=== PATIENT | male | born 1965 | race Caucasian/White ===

== ENCOUNTER → 2024-07-16 | Outpatient (CLI) | payer OTHER, SELFPAY ==
--- NOTE | 2024-07-16 17:23 | CT_ITS ---
PROCEDURE: SINUS/FACIAL BONE REASON FOR EXAM: CHRONIC SINUSITIS TECHNIQUE: CT of the facial bones without contrast. One or more dose reduction techniques were used (e.g., Automated exposure control, adjustment of the mA and/or kV according to patient size, use of iterative reconstruction technique). COMPARISON: None. FINDINGS: Bones: No acute fracture. Sinuses: Mucosal thickening of the paranasal sinuses, particularly the bilateral maxillary sinus. Orbits: Unremarkable Soft Tissues: Unremarkable Frontal: Mucosal thickening. CT/Sinus/Facial Bone IMPRESSION: Mucosal thickening of the paranasal sinuses, concerning for sinus disease. Reading Location: [facility]
== END | disposition home or self-care (01) ==
PROVIDERS: PCP Family Medicine; Referring Provider Otolaryngology; Visit Provider Otolaryngology
DX: J32.8 Other chronic sinusitis (principal)
CPT/HCPCS: 70486

== ENCOUNTER 2024-08-20 08:14 | Day surgery (SDC) | payer OTHER, SELFPAY ==
--- NOTE | 2024-08-14 13:36 | EKG12_ITS ---
Test Reason : PREOP Blood Pressure : */* mmHG Vent. Rate : 60 BPM Atrial Rate : 60 BPM P-R Int : 166 ms QRS Dur : 88 ms QT Int : 400 ms P-R-T Axes : 53 34 23 degrees QTcB Int : 400 ms Normal sinus rhythm Normal ECG No previous ECGs available Confirmed by JANNIE MENDOZA, LEVAR ([id number]), assignment desk editor CAMMY BERNAL ([id number]) on 08/15/2024 1:12:51 PM Referred By: Bernardino Najera Confirmed By: LEVAR VALDERRAMA MD
[2024-08-14 14:27] LABS: Hemoglobin 13.2 g/dL (13.0-16.5); Mean Corpuscular Hgb 29.5 pg (27.0-32.0); Mean Corpuscular Volume 89.3 fL (80-94); Mean Platelet Vol. 9.9 fl (6.2-12.0); Platelet Count 296 K/mm3 (150-450); RBC Distribution Width SD 42.3 fl (35.1-43.9); Red Blood Count 4.48 M/mm3 (4.6-6.2); White Blood Count 7.1 K/mm3 (4.4-11.0)
[2024-08-14 15:06] LABS: Anion Gap 12 (5-15); BUN 13 mg/dL (4-19); BUN/Creat Ratio 10.8 RATIO (10-20); Calcium,Total 8.9 mg/dL (7.6-11.0); Chloride 106 mmol/L (98-108); Creatinine, Serum 1.17 mg/dL (0.70-1.20); EST Glomerular Filtration Rate 72 (>60); Glucose 106 mg/dL (70-99); Potassium 4.2 mmol/L (3.3-5.1); Sodium Level 139 mmol/L (133-145)
--- NOTE | 2024-08-17 10:47 | PAT.ANE_ITS ---
Pre-Assessment Diagnosis/Proposed Procedure Planned Operative Procedure(s): (B) Septoplasty, Submucous Resection of Inferior Turbinates, Bilateral Myringotomy with Tubes, Bilateral Maxillary Antrostomy, Bilateral Total Ethmoidectomy, with Navigation Anesthesia History Anesthesia History - project management analyst: Anesthesia History - project management analyst Hx Hospitalization No 08/13/24 10:15 Any Problems With Anesthesia Yes: PONV 08/13/24 10:15 Cholinesterase deficiency No 08/13/24 10:15 You/Your Family Experience No 08/13/24 10:15 fever (hyperthermia) with Relationship Recent Exposure to Contagious Disease Does patient have nerve No 08/13/24 10:15 stimulator Patient instructed to have device shut off --Does patient have Pacemaker or ICD? When Was Last Pacemaker Check QUESTION #4 FULL TEXT: You/Your Family Experience fever (hyperthermia) with Anesthesia Last Oral Intake Last Oral intake: Last Oral Intake NPO since Meds taken in AM with sips of water? Meds patient instructed to take am of surgery PONV PONV - project management analyst: PONV - project management analyst Female No 08/13/24 10:15 HX of Motion Sickness No 08/13/24 10:15 HX of N/V After Surgery Yes 08/13/24 10:15 Non-Smoker Yes 08/13/24 10:15 Duration of Surgery greater Yes 08/13/24 10:15 than 60 minutes Number of Risk Factors 3 08/13/24 10:15 PONV Score Moderate Risk 08/13/24 10:15 Respiratory Assessment Respiratory Assessment - project management analyst: Respiratory Tract Infection Hx - project management analyst Hx Respiratory Tract Infection No 08/13/24 10:15 STOP Sleep Apnea STOP Sleep Apnea - project management analyst: STOP Sleep Apnea - project management analyst Hx Hypertension No 08/13/24 10:15 Hx Sleep Apnea Yes 08/13/24 10:15 CPAP Yes 08/13/24 10:15 BIPAP No 08/13/24 10:15 Do you snore loudly (louder than talking or can be heard Do you often feel tired/ fatigued/ sleepy during daytime? Has anyone observed you stop breathing during sleep? STOP Results Positive 08/13/24 10:15 QUESTION #5 FULL TEXT : Do you snore loudly (louder than talking or can be heard through closed doors)? 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 Specify any problems Hx of Preganancy in last 3 N/A 08/13/24 10:15 Months Nurse Filling Out Transfusion MGRIFFITH 08/13/24 10:15 & Questions: Date: 08/13/24 08/13/24 10:15 Time: 10:19 08/13/24 10:15 Patient unable to answer at this time (ie. confused, unrespo /Reproduction History /Reproductive History - project management analyst: /Reproductive Hx- project management analyst Hx Now Gestational Age (in weeks): EDC: Hx Hx Para Hx Section SAB ON LICENSE OF [facility] Medical History (Updated 08/13/24 @ 10:33 by Na Telles) Wears glasses Depression Back pain History of kidney stones High cholesterol Restless legs Arthritis History of hiatal hernia Difficulty swallowing Difficulty chewing PONV (postoperative nausea and vomiting) History of IBS Gastric reflux CPAP (continuous positive airway pressure) dependence Sleep apnea Shortness of breath on exertion Former smoker Leg cramps History of edema History of echocardiogram History of stress test Cardiology follow-up encounter Home Medications ?Medication ?Instructions ?Recorded ?Last Taken ?Type albuterol sulfate 90 mcg/actuation 2 puff inhalation Q 4H PRN PRN 08/13/24 Unknown History aerosol inhaler wheezing aspirin 81 mg tablet,delayed 81 mg PO DAILY 08/13/24 0 08/13/24 History release baclofen 10 mg tablet 10 mg PO QHS 08/13/24 Unknow n History citalopram 10 mg tablet 10 mg PO QHS 08/13/24 Unknow n History esomeprazole magnesium 20 mg 40 mg PO DAILY 08/13/24 U nknown History capsule,delayed release (Nexium) fluticasone propionate 50 1 spray intranasal DAILY PRN 08/13/24 Unknown History mcg/actuation nasal allergy symptoms spray,suspension gabapentin 100 mg capsule 100 mg PO BID PRN pain 08/13 Unknown History methocarbamol 750 mg tablet 750 mg PO TID PRN muscle r elaxant 08/13/24 Unknown History montelukast 10 mg tablet 10 mg PO QHS 08/13/24 Unknow n History multivitamin 1 tab PO DAILY 08/13/24 Unkn own History rosuvastatin 40 mg tablet 20 mg PO QHS 08/13/24 Unknow n History Allergy/AdvReac Type Severity Reaction Status Date / Time hydrocodone Allergy Intermediate Rash Verified 08/13/24 10:02 Penicillins (PCN) AdvReac Unknown PT UNSURE Verified 08/13/24 10:02 OF REACTION Surgical History (Updated 08/13/24 @ 10:33 by Na Telles) History of cardiac catheterization History of eye surgery History of lithotripsy History of colonoscopy History of esophagogastroduodenoscopy (EGD) History of surgery on lower extremity Social History Smoking Status: Former smoker Audit: Pertinent Findings Pertinent Findings EKG Perinent findings: 08/14/2024. Normal sinus rhythm 60 bpm. Normal EKG. Stress test pertinent findings: 01/05/2023. Negative stress test. Echo (EF%) pertinent findings: Echo per [facility]. EF 59%. Normal wall motion and function. Consult pertinent findings: Cardiology. [facility]. 08/05/2024. Pain, unspecified type. Stated noncardiac/positional symptoms. History of nonobstructive coronary artery disease. Continue aspirin and statins. Recommendation Anesthesia Recommendation Anesthesia recommendation: OPTIMIZED for anesthesia
[2024-08-20] VITALS (13 sets, daily range): BP systolic 119–157; BP diastolic 63–87; PULSE 65–84; RESP 14–22; TEMP 36.6–37.1; O2SAT 90–100; BMI 29.7
[2024-08-20] MEDS: Lactated Ringers 1,000 ML 15 ML IV (08:53)
--- NOTE | 2024-08-20 09:08 | PCM.PRE.AN2 ---
ASA Classification* ASA Classification ASA Classification: 3 (Severe PONV - please do TIVA. Also SEVERE HELLEN, AHI > 90. Please ask surgeon to place nasal trumpet under visualization at the end of the case if possible. The patient reports significant post operative hypoxia and obstruction in PACU during his previous anes. Stable cardiac hx. ) Assessment & Plan Anesthesia* Anesthesia Assessment Anesthesia Assessment: Discussed sedation and/or anesthesia options, risks, benefits, and alternatives with patient/parents/legal guardian/POA. Questions invited. The patient/parents/legal guardian/POA seems to understand and agrees to proceed with anesthesia plan. Reviewed the physical assessment, medical history, allergy history and patient home medications list prior to surgery/procedure/anesthetic and documented any changes. Performed airway and anesthesia risk assessments. Anesthesia Type Anesthesia Type: General History Source History Obtained from:: Patient and Chart Anesthesia Focused Assessment* Temperature: 98.4 F Pulse Rate: 65 Blood Pressure: 119/77 Respiratory Rate: 16 Pulse Ox: 99 Oxygen Delivery Method: Room Air Airway Assessment Mouth opens: >3 cm Mallampati Score: II Teeth Condition: Intact and Missing (front top left ) Focused Labs Anesthesia Preop lab: CBC WBC 7.1 K/mm3 (4.4-11.0) 08/14/24 13:37 08/14/24 RBC 4.48 M/mm3 (4.6-6.2) L 08/14/24 13:37 08/14/24 Hgb 13.2 g/dL (13.0-16.5) 08/14/24 13:37 08/14/24 Hct 40.0 % (40-54) 08/14/24 13:37 08/14/24 Plt Count 296 K/mm3 (150-450) 08/14/24 13:37 08/14/24 CHEMISTRY Potassium 4.2 mmol/L (3.3-5.1) 08/14/24 13:37 08/14/24 Sodium 139 mmol/L (133-145) 08/14/24 13:37 08/14/24 BUN 13 mg/dL (4-19) 08/14/24 13:37 08/14/24 Creatinine 1.17 mg/dL (0.70-1.20) 08/14/24 13:37 08/14/24 Glucose 106 mg/dL (70-99) H 08/14/24 13:37 08/14/24 COAG Pre-Assessment Diagnosis/Proposed Procedure Planned Operative Procedure(s): (B) Septoplasty, Submucous Resection of Inferior Turbinates, Bilateral Myringotomy with Tubes, Bilateral Maxillary Antrostomy, Bilateral Total Ethmoidectomy, with Navigation Anesthesia History Anesthesia History - metal coater: Anesthesia History - metal coater Hx Hospitalization No 08/13/24 10:15 Any Problems With Anesthesia Yes: PONV 08/13/24 10:15 Cholinesterase deficiency No 08/13/24 10:15 You/Your Family Experience No 08/13/24 10:15 fever (hyperthermia) with Relationship Recent Exposure to Contagious No 08/20/24 08:39 Disease Does patient have nerve No 08/13/24 10:15 stimulator Patient instructed to have device shut off --Does patient have Pacemaker No 08/20/24 08:39 or ICD? When Was Last Pacemaker Check QUESTION #4 FULL TEXT: You/Your Family Experience fever (hyperthermia) with Anesthesia Last Oral Intake Last Oral intake: Last Oral Intake NPO since 21:30 08/20/24 08:39 Meds taken in AM with sips of Yes 08/20/24 08:39 water? Meds patient instructed to nexium 08/20/24 08:39 take am of surgery PONV PONV - metal coater: PONV - metal coater Female No 08/13/24 10:15 HX of Motion Sickness No 08/13/24 10:15 HX of N/V After Surgery Yes 08/13/24 10:15 Non-Smoker Yes 08/13/24 10:15 Duration of Surgery greater Yes 08/13/24 10:15 than 60 minutes Number of Risk Factors 3 08/13/24 10:15 PONV Score Moderate Risk 08/13/24 10:15 Height & Weight Height & Weight: Anesthesia: Height & Weight Height 5 ft 6 in 08/20/24 08:39 Weight: 83.5 kg 08/20/24 08:39 Body Mass Index (BMI) 29.7 08/20/24 08:39 Respiratory Assessment Respiratory Assessment - metal coater: Respiratory Tract Infection Hx - metal coater Hx Respiratory Tract Infection No 08/13/24 10:15 STOP Sleep Apnea STOP Sleep Apnea - metal coater: STOP Sleep Apnea - metal coater Hx Hypertension No 08/13/24 10:15 Hx Sleep Apnea Yes 08/13/24 10:15 CPAP Yes 08/13/24 10:15 BIPAP No 08/13/24 10:15 Do you snore loudly (louder than talking or can be heard Do you often feel tired/ fatigued/ sleepy during daytime? Has anyone observed you stop breathing during sleep? STOP Results Positive 08/13/24 10:15 QUESTION #5 FULL TEXT : Do you snore loudly (louder than talking or can be heard through closed doors)? 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 Specify any problems Hx of Preganancy in last 3 N/A 08/13/24 10:15 Months Nurse Filling Out Transfusion MGRIFFITH 08/13/24 10:15 & Questions: Date: 08/13/24 08/13/24 10:15 Time: 10:19 08/13/24 10:15 Patient unable to answer at this time (ie. confused, unrespo /Reproduction History /Reproductive History - metal coater: /Reproductive Hx- metal coater Hx Now Gestational Age (in weeks): EDC: Hx Hx Para Hx Section SAB Active Medications Active Medications: Current Medications Generic Name Dose Route Start Last Admin Trade Name Freq PRN Reason Stop Dose Admin Lactated Ringer's 1,000 mls @ 15 mls/hr 08/20/24 08:30 08/20/24 08:53 IV 15 mls/hr .Q48H ALDO Administration PFSH Medical History (Updated 08/13/24 @ 10:33 by Na Telles) Wears glasses Depression Back pain History of kidney stones High cholesterol Restless legs Arthritis History of hiatal hernia Difficulty swallowing Difficulty chewing PONV (postoperative nausea and vomiting) History of IBS Gastric reflux CPAP (continuous positive airway pressure) dependence Sleep apnea Shortness of breath on exertion Former smoker Leg cramps History of edema History of echocardiogram History of stress test Cardiology follow-up encounter Home Medications ?Medication ?Instructions ?Recorded ?Last Taken ?Type albuterol sulfate 90 mcg/actuation 2 puff inhalation Q4H PRN PRN 08/13/24 Unknown History aerosol inhaler wheezing aspirin 81 mg tablet,delayed 81 mg PO DAILY 08/13/24 08/13/24 History release baclofen 10 mg tablet 10 mg PO QHS 08/13/24 Unknown History citalopram 10 mg tablet 10 mg PO QHS 08/13/24 Unknown History esomeprazole magnesium 20 mg 40 mg PO DAILY 08/13/24 08/20/24 05:00 History capsule,delayed release (Nexium) fluticasone propionate 50 1 spray intranasal DAILY PRN 08/13/24 Unknown History mcg/actuation nasal allergy symptoms spray,suspension gabapentin 100 mg capsule 100 mg PO BID PRN pain 08/13/24 Unknown History methocarbamol 750 mg tablet 750 mg PO TID PRN muscle relaxant 08/13/24 Unknown History montelukast 10 mg tablet 10 mg PO QHS 08/13/24 Unknown History multivitamin 1 tab PO DAILY 08/13/24 Unknown History rosuvastatin 40 mg tablet 20 mg PO QHS 08/13/24 Unknown History Allergy/AdvReac Type Severity Reaction Status Date / Time hydrocodone Allergy Intermediate Rash Verified 08/20/24 08:38 Penicillins (PCN) AdvReac Unknown PT UNSURE Verified 08/20/24 08:38 OF REACTION Surgical History (Updated 08/13/24 @ 10:33 by Na Telles) History of cardiac catheterization History of eye surgery History of lithotripsy History of colonoscopy History of esophagogastroduodenoscopy (EGD) History of surgery on lower extremity Social History Smoking Status: Former smoker Review of Systems (Anesthesia) ROS Narrative System reviewed and no additional complaints, except as documented. Physical Exam Const alert, oriented x3 and average body habitus Resp normal respiratory effort, normal air movement and clear to auscultation bilaterally Cardio regular rate, regular rhythm, no murmurs and diaphoretic
--- NOTE | 2024-08-20 10:00 | ETH_PTH ---
PATIENT: GAGANDEEP DAO [place] [facility] [id number] AGE/SX: 59/M ROOM: RE08/20/[address]: Dr. Bernardino Najera MD : 1965 BED: DIS: 08/20/2024 SPEC #: [id number] RECD: 08/20/24 13:09 STATUS: BRYCE RUFINO #: [id number] ADRYAN: 08/20/24 10:[address]: Bernardino Najera DEPT: SURGICAL PATHOLOGY RECD BY: William Gao ENTERED: 08/20/24 13:38 SP TYPE: ETH TISS OTHR DR: Dr. Kirsten Azul MD Tissues: A - Ethmoid sinus, NOS B - Ethmoid sinus, NOS C - Ethmoid sinus, NOS Procedures: Decalcification bone/plaque Surgery Specimen Level IV HEADER OPERATION: Septoplasty, submucous resection of inferior turbinates PRE-OP DIAGNOSIS: Deviated septum, chronic sinusitis, allergic rhinitis, hypertrophy nasal turbinates, chronic serous otitis media TISSUE SUBMITTED: A- Nasal septum cartilage, B- Left sinus contents, C- Right sinus contents MICROSCOPIC DIAGNOSIS A. Nasal septum, cartilage, septoplasty: * Benign cartilage and bone B. Left sinus contents: * Benign respiratory type mucosa and bone with mild chronic inflammation C. Right sinus contents: * Benign respiratory type mucosa and bone with mild chronic inflammation MICROSCOPIC DESCRIPTION Slides are reviewed. GROSS DESCRIPTION A. Received in formalin in a container labeled with the patient's name, date of , and nasal septal cartilage are multiple white-raines fragments of cartilage measuring 2.5 x 2.4 x 0.5 cm in aggregate. Sectioning reveals uniform, somewhat indurated surfaces. There are 2 red-dow, firm fragments of possible bone measuring 0.9 x 0.4 x 0.2 cm and 0.6 x 0.4 x 0.1 cm. The specimen is submitted entirely as follows:A1. CartilageA2. Possible bone following decalcification B. Received in formalin in a container labeled with the patient's name, date of , and left sinus contents are multiple dow-pink fragments of soft tissue admixed with blood and mucus measuring 2.3 x 0.9 x 0.3 cm in aggregate. Submitted in toto in B1. C. Received in formalin in a container labeled with the patient's name, date of , and right sinus contents are multiple red-dow fragments of soft tissue admixed with blood and mucus measuring 2.5 x 0.8 x 0.3 cm in aggregate. Submitted in toto in C1. [facility] 08-20-2024 CPT:64293h8,04982
--- NOTE | 2024-08-20 10:58 | DS.PCM_ITS ---
Providers Primary Care Physician: Dr. Kirsten Azul MD Reason For Visit: Septoplasty, Submucous Resection of Medications at Discharge Home Medications albuterol sulfate 90 mcg/actuation aerosol inhaler 2 puff inhalation Q4H PRN PRN wheezing 08/13/24 aspirin 81 mg tablet,delayed release 81 mg PO DAILY 08/13/24 baclofen 10 mg tablet 10 mg PO QHS 08/13/24 citalopram 10 mg tablet 10 mg PO QHS 08/13/24 esomeprazole magnesium 20 mg capsule,delayed release (Nexium) 40 mg PO DAILY 08/13/24 fluticasone propionate 50 mcg/actuation nasal spray,suspension 1 spray intranasal DAILY PRN allergy symptoms 08/13/24 gabapentin 100 mg capsule 100 mg PO BID PRN pain 08/13/24 methocarbamol 750 mg tablet 750 mg PO TID PRN muscle relaxant 08/13/24 montelukast 10 mg tablet 10 mg PO QHS 08/13/24 multivitamin 1 tab PO DAILY 08/13/24 rosuvastatin 40 mg tablet 20 mg PO QHS 08/13/24 Weight / BMI Weight Weight: 83.5 kg Body Mass Index (BMI) 29.7 ABG / Lab / Microbiology Data 08/14/24 13:37 08/14/24 13:37 D/C Instructions Discharge Diet: No restrictions Additional Activity Instructions: no nose blowing Start saline nasal spray 3 sprays each nostril 4x/day on 08/20/24 DC O2, CPAP, BIPAP Needs Home O2 Discharge instructions: No Please Follow Up With: Bernardino Najera MD When: 8 days Meaningful Use Info Meaningful Use Meaningful Use Diagnoses (Choose all that apply): None applicable Ischemic Stroke Statin Dosing Therapy Reference: STATIN DOSE THERAPY REFERENCE: * Patients > 75 years receive moderate or high dose statin therapy. * Patients 75 years or YOUNGER should receive HIGH intensity statin dose unless contraindicated. You will be required to document reason for non-treatment if statin daily dose does not meet guidelines. HIGH DOSE STATIN THERAPY DAILY Atorvastatin > than or = to 40 mg Rosuvastatin > than or = to 20 mg Amlodipine + Atorvastatin > than or = to 2.5/40 mg Ezetimibe + Simvastatin 10/80 mg Simvastatin 80mg Discharge Plan Admission Attending Provider: Bernardino Najera Primary Care Provider: Kirsten Azul Instructions Print Language: Telugu Discharge Orders/Prescriptions Prescriptions: No Action citalopram 10 mg tablet 10 mg PO QHS baclofen 10 mg tablet 10 mg PO QHS albuterol sulfate 90 mcg/actuation HFA aerosol inhaler 2 puff inhalation Q4H PRN PRN (Reason: wheezing) fluticasone propionate 50 mcg/actuation spray,suspension 1 spray INTRANASAL DAILY PRN (Reason: allergy symptoms) gabapentin 100 mg capsule 100 mg PO BID PRN (Reason: pain) methocarbamol 750 mg tablet 750 mg PO TID PRN (Reason: muscle relaxant) montelukast 10 mg tablet 10 mg PO QHS rosuvastatin 40 mg tablet 20 mg PO QHS esomeprazole magnesium [Nexium] 20 mg capsule,delayed release(DR/EC) 40 mg PO DAILY aspirin 81 mg tablet,delayed release (DR/EC) 81 mg PO DAILY Patient Comments: Last Dose 08/13/2024 for surgery on 08/20/2024 multivitamin Tablet 1 tab PO DAILY Other Ambulatory Orders: 12 Lead EKG (Routine) Timeframe: 20240814 Location: None Selected Ordered By: Dr. Bernardino Najera Referrals / Follow Up: Kirsten Azul MD [Primary Care Provider] - Disposition Disposition (needs filled in before D/C Order can be placed): Home, Self Care
--- NOTE | 2024-08-20 10:59 | PCM.OPRPT ---
Operative Report (Standard) Operative Information Date of Procedure: 08/20/24 Pre-Operative Diagnosis: chronic sinusitis deviated nasal septum inferior turbinate hypertrophy chronic serous otitis media Post-Operative Diagnosis: same Surgery/Procedure Performed: Bilateral total ethmoidectomy Bilateral sphenoidotomy Bilateral maxillary antrostomy Septoplasty Bilateral submucous resection inferior turbinates Bilateral myringotomy with tubes Use of navigation casing finisher and stuffer: No Type of Anesthesia: General RN Documented Start/Stop Times: Operation Date: 08/20/24 10:00 Case Time Into Pre-Op 08/20/24 08:17 Out of Pre-Op 08/20/24 10:48 Procedure Start Time: 11:17 Procedure Stop Time: 12:37 Select all DRAINS/GRAFTS/IMPLANTS that apply: None Estimated Blood Loss: minmal Specimen collected: Yes Description of specimen(s) removed: sinus contents left and right, septum Description of surgery: The patient was taken to the operating room on 08/20/2024. The patient was placed in the supine position on the operating table. The patient was given sufficient general endotracheal anesthesia. The head of bed was elevated 30 degrees. The navigation system was placed and verified per protocol and found to be accurate. 0 and 30 degrees rigid nasal endoscopes were used throughout the entire case. The middle turbinate, uncinate process and septum were injected with 1% lidocaine with epinephrine bilaterally. The left middle turbinate was medialized with a Berkshire elevator. A ball-tipped sinus seeker was placed into the patient's maxillary sinus. The maxillary antrostomy was created with a backbiter and widened posteriorly with Jayme-Cut forceps. The uncinate process was taken down using a microdebrider. Next, the ethmoid bulla was opened with a small curette. Anterior and posterior ethmoidectomy were then carried out using curette, sinus shaver and 45 degree Blakesley Iraj forceps. Ethmoid cells were verified for relation to the skull base and orbit prior to being entered with the navigation system. I entered the front face of the sphenoid with the navigation tool. The sphenoidotomy was widened with a sinus shaver. A right hemitransfixion incision was created with a 15 blade. The mucoperichondrium was elevated off of the left-hand side of the septum with a Berkshire elevator. An anterior and posterior tunnel were created in this fashion. The bony cartilaginous junction was with a Berkshire elevator. A posterior tunnel was created on the right side developed by elevating the mucoperichondrial with a Berkshire. The deviated portions of bony septum removed using open Tosha forceps. Next I established a plane on the right-hand side of the quadrangular cartilage as it was completely deviated into the right nasal cavity. I left a superior and anterior cartilage strip of 1.5 cm however the deviated portions the quadrangular cartilage was excised. Afrin was used for hemostasis as well as hemoblast powder. Next, an incision was placed anterior aspect of the right inferior turbinate at the mucocutaneous junction. A submucous plane established with a caudal elevator. Submucous resection was carried out using a microdebrider where bone and tissue were removed. Afrin pledgets were used for hemostasis. The incision was then closed with 4-0 chromic. Then, an incision was placed at the anterior aspect of the left inferior turbinate at the mucocutaneous junction. A submucous plane established using a caudal elevator. Submucous resection was carried out using a microdebrider where bone and tissue were removed. The incision was then closed with 4-0 chromic. The hemitransfixion incision was closed with 4-0 chromic. Next attention was turned to the right side. The middle turbinate was medialized with a Berkshire elevator. A ball-tipped sinus seeker inserted the patient's maxillary sinus. The maxillary crest was graded with a backbiter as well as Jayme-Cut forceps. The uncinate process was taken down using a sinus shaver. The ethmoid bulla was opened with a small curette. Anterior posterior ethmoidectomy were then carried out using a sinus shaver curette and Blakesley Iraj forceps. Ethmoid cells were verified for relation to the skull base and orbit prior to being entered with the navigation system. The sphenoid was then opened on the left side using a sinus shaver and confirmed with navigation. Hemostasis was then achieved using Afrin pledgets. The pledgets were then removed bilaterally and hemoblast powder was applied bilaterally for absolute hemostasis. Vieira nasal splints were applied to each side of the septum and sewn through and through with 3-0 silk. The operating microscope was used throughout the entire ear portion of the case. A speculum was inserted into the patient's left ear. Cerumen was removed using a curette. The old tube was removed from the tympanic membrane using alligator forceps. A T tube was placed without difficulty. Antibiotic drops were instilled into the patient's ear. Next, a speculum was inserted into the patient's right ear. Cerumen was removed using a curette. An incision was placed in the anterior inferior quadrant of the tympanic membrane. Fluid was suctioned from the middle ear space using a #5 suction. A T tube was placed without difficulty. Antibiotic drops were instilled into the patient's ear. The patient was then awoken and brought to the recovery room in stable condition. Blood loss minimal, replacement none. Sponge, needle count, sponge count, were correct at the end of this procedure. Surgical Findings: fluid both middle ears. Complications Complications: No
[2024-08-20] MEDS: Lidocaine 1% /Epi 1:100 (20ml) 20 ML Vial (11:17)
[2024-08-20] MEDS: Oxymetazoline 0.05% 1 SPRAY SPRAY.BTL 15 SPRAY (11:17)
[2024-08-20] MEDS: Mupirocin Ointment 22gm Tube 1 APPLIC (12:12)
[2024-08-20] MEDS: Ciprofloxacin 0.3% 2.5ml Bottle 1 DRP (12:14)
--- NOTE | 2024-08-20 13:02 | PCM.POST.ANE ---
Anesthesia: Postop Eval I Current Vital Signs Temperature: 98.8 F Pulse Rate: 75 Blood Pressure: 139/86 Respiratory Rate: 16 Pulse Ox: 96 (OPA in place ) Oxygen Delivery Method: Venturi Mask Oxygen Flow Rate (L/min): 8 Assessment Airway patent: Yes Spontaneous unlabored respirations: Yes Mental status: Asleep nausea: No Vomiting: No Anesthesia Complication: No Fluid Hydration Crystalloid volume administer (ml): 1,300 Total IV fluid infused: 1,300 Progress Note Anesthesia document: Postop Eval 1 completed: Yes
--- NOTE | 2024-08-20 13:06 | SUR.PHASEI ---
RN SUCTIONING PATIENT, PATIENT HAVING BLOOD AND SECRETIONS COMING OUT, BVM AT BEDSIDE AND READY
--- NOTE | 2024-08-20 13:06 | SUR.PHASEI ---
ANESTHESIA PHYSICIAN AT BEDSIDE. ADVISED RN TO PULL ZOFRAN AND REGLAN FOR NAUSEA AND VOMITING FOR PATIENT. ASSISTING RN WITH SUCTIONING OF PATIENT. RN PLACED PATIENT IN LEFT LATERAL TO PREVENT ASPIRATION. ANESTHESIA WANTED [place]. PATIENT AIRWAY SECURED AND [place] ONCE AIRWAY SUCTIONED AND CLEARED OF BLOOD. ANESTHESIA WANTED ENT PHYSCIAN CONTACTED AND TO COME ASSESS PATIENT. ENT CONTACTED AND WILL COME BEDSIDE
--- NOTE | 2024-08-20 13:15 | SUR.PHASEI ---
DR. FARMER AT BEDSIDE ASSESSING PATIENT. DR FARMER NOT CONCERNED WITH BLEEDING. STATED DRESSING NEEDED CHANGED. DR FARMER CHANGED 2X2 MUSTACHE DRESSING AT BEDSIDE. DR FARMER STATED THAT IF DRESSING SATURATES EVERY 30 MINUTES IT IS FINE, BUT IF IT IS SATURATING EVERY 5 MINUTES TO CALL HIM. NO OTHER ORDERS GIVEN. DR FARMER LEFT BEDSIDE
--- NOTE | 2024-08-20 13:20 | SUR.PHASEI ---
DR. FARMER REPLACED SATURATED GAUZE AND PLACED NEW DRY AND INTACT 2X2 MUSTACHE ON PATIENT AT THIS TIME [id number]
--- NOTE | 2024-08-20 13:40 | SUR.PHASEI ---
RN CHANGED 2X2 MUSTACHE DUE TO IT BEING SATURATED. RN PLACED NEW 2X2 MUSTACHE ON PATIENT AT THIS TIME [id number]
--- NOTE | 2024-08-20 13:51 | POSTOPAN2_ITS ---
Anesthesia Postop Eval I Sum Postop Eval Completion status Anesthesia document: Postop Eval 1 completed: Yes Anesthesia Postop Eval I Summary Anesthesia Postop Eval I Summary: Anesthesia Postop Eval I: Assessment Summary Airway patent Yes 08/20/24 13:03 AIRCRAFT MAINTENANCE [email or web address] Spontaneous unlabored Yes 08/20/24 13:03 AIRCRAFT MAINTENANCE [email or web address] respirations Mental status Asleep 08/20/24 13:03 AIRCRAFT MAINTENANCE [email or web address] nausea No 08/20/24 13:03 AIRCRAFT MAINTENANCE [email or web address] Vomiting No 08/20/24 13:03 AIRCRAFT MAINTENANCE [email or web address] Anesthesia Postop Eval I: Fluid Summary Crystalloid volume administer 1,300 08/20/24 13:03 AIRCRAFT MAINTENANCE [email or web address] (ml) Colloids volume administered ( ml) Blood Product volume administered (ml) Total IV fluid infused 1,300 08/20/24 13:03 AIRCRAFT MAINTENANCE [email or web address] Anesthesia Postop Eval I: Summary Notes Anesthesia Complication No 08/20/24 13:03 AIRCRAFT MAINTENANCE [email or web address] Anesthesia Complication Comment: Post-operative progress note Anesthesia: Postop Eval II Evaluation Mental status: Awake Pain Level: 0 nausea: No Vomiting: No Progress Note Post-operative progress note: Some excessive bleeding due to the FESS was noted postoperatively, in the OR, and in PACU. Dr. Najera came to evaluate the patient and stated that some bleeding is to be expected, and that the patient is appropriate for discharge as long as he is not profusely bleeding from the nares. The patient is now more stable and expected to be discharged. Complications Anesthesia Complication: No
== END 2024-08-20 15:35 | disposition home or self-care (01) ==
LOC: SDC 08:15 → AC 08:18
PROVIDERS: PCP Family Medicine; Referring Provider Otolaryngology; Visit Provider Otolaryngology
PROC: (CPT 30520; principal; 2024-08-20 09:30)
DX: J34.2 Deviated nasal septum (principal); H65.23 Chronic serous otitis media, bilateral; J32.8 Other chronic sinusitis; J34.3 Hypertrophy of nasal turbinates; E78.00 Pure hypercholesterolemia, unspecified; K21.9 Gastro-esophageal reflux disease without esophagitis; Z87.891 Personal history of nicotine dependence
CPT/HCPCS: 30520; 30140; 31256; 31257; 69436; 00160; 36415; 80048; 85027; 88305; 88311; 93005; J2405